=== PATIENT | male | born 1945 | race Caucasian/White ===

== ENCOUNTER 2017-01-02 07:30 | Inpatient (IN) ==
[2017-01-04] MEDS ORDERED: CLINDAMYCIN PB 900 MG/50 ML BAG IV ONE (06:00)
[2017-01-04] MEDS ORDERED: MELOXICAM 15 MG TABLET PO ONE (06:00)
[2017-01-04] MEDS ORDERED: NOZIN NASAL SWAB NAS ONE ×2 (06:00→12:02)
[2017-01-04] MEDS ORDERED: TRANEXAMIC ACID 1,000 MG in NS 100 ML IV ONE (06:00)
[2017-01-04] MEDS ORDERED: FAMOTIDINE PB 20 MG/50 ML BAG IV ONE (06:00)
[2017-01-04] MEDS ORDERED: LIDOCAINE 1% (10mg/ml) 2mL INJ PF SDV ID ONE (06:00)
[2017-01-04] MEDS ORDERED: METOCLOPRAMIDE 10mg/2ml INJECTION IVP ONE (06:00)
[2017-01-04] MEDS ORDERED: ONDANSETRON 4 MG/2 ML INJECTION IVP ONE (06:00)
[2017-01-04] MEDS ORDERED: ACETAMINOPHEN 500 MG TABLET PO ONE (06:00)
--- NOTE | 2017-01-04 07:49 | Anesthesia Preoperative Report ---
Anesthesia Preoperative Record - Date and Time Date: 01/04/17 Preoperative Diagnosis: LT NORAH M16.12 Proposed Procedure: Left total hip NPO Since Date: 01/04/17 NPO Since Time: 00:00 Allergies/Adverse Reactions: Allergies Allergy/AdvReac Type Severity Reaction Status Date / Time Penicillins Allergy Unknown Verified 11/29/16 14:47 - Vital Signs Vital Signs: Temperature 98.6 F 01/04/17 07:34 Pulse Rate 75 01/04/17 07:34 Respiratory Rate 16 01/04/17 07:34 Blood Pressure 155/72 H 01/04/17 07:34 Pulse Oximetry 95 01/04/17 07:34 Height and Weight: Height 1.83 m Weight 118.2 kg Body Mass Index 35.3 - Medications Inpatient Medications: Current Medications Lactated Ringer's (Lactated Ringers) 1,000 mls @ 50 mls/hr IV .Q20H ANA Epinephrine HCl 0.25 mg/Bupivacaine HCl 30 ml/Morphine Sulfate 15 mg/Ketorolac Tromethamine 60 mg/Sodium Chloride 65.25 mls @ 0 mls/hr OPSITE INTRAOP ONE; Per Protocol PRN Reason: Protocol Stop: 01/04/17 08:01 Sodium Chloride (Iv Flush) 10 - 80 ml IV PRN PRN PRN Reason: [place] Home Medications: Home Medications Medication Instructions Recorded Confirmed Type Multivitamin [Multi-Day Vitamins] 1 tab PO DAILY #0 tab 10/11/15 11/29/16 History Naproxen Sodium [Aleve] 440 mg PO DAILY #0 tab 10/11/15 01/03/17 History [place]-3 Fatty Acids [[place]-3] 1 cap PO DAILY #0 10/11/15 11/29/16 History Pravastatin Sodium 40 mg PO HS #0 tab 10/11/15 11/29/16 History Lisinopril 20 mg PO DAILY #0 tab 11/11/15 11/29/16 History Amlodipine Besylate 5 mg PO DAILY #0 tab 11/15/15 11/29/16 History Acetaminophen [Tylenol] 650 mg PO QID PRN 11/29/16 11/29/16 History Is Patient on Beta Nishi?: No - Medical History Respiratory: Reports: Sleep Apnea (USES CPAP) Cardiovascular: Reports: Hypertension, High Cholesterol Neuro/Musculoskeletal: Reports: HX.MS.OSAR, Depression (per h&p) Renal/Endocrine: Reports: Diabetes Mellitus Type 2 (diet controlled) Other History: Reports: Anesthesia Reactions (requests spinal) - Surgical History HEENT Surgeries: Reports: Eye Surgery (cataract x2) Respiratory Surgery/Treatments: Reports: CPAP Use Musculoskeletal Surgery/Tx: Reports: Total Hip Replacement (Rt NORAH 2016) Anesthesia Reactions: None Hx Family Anesthesia Reaction: No History of Motion Sickness: No - Social History Smoking Status: Former smoker Hx Chewing Tobacco Use: No Second Hand Exposure: No Substance Use Type: does not use Alcohol Intake Frequency: holidays/special occasions only - Pertinent Findings EKG: Sinus Rhythm - Physical Exam Respiratory Exam: Present: lungs clear Cardiovascular Exam: Present: regular rate and rhythm - Airway Assessment Mallampati Score: II TMD: 3 Fingerbreadths Neck Extension: fair Overall Assessment: no airway concerns - ASA ASA Score: 2 - Plan Regional/Trunk Block: Spinal - Discussion Discussion: Discussed risks/options/alternatives of anesthesia and questions answered. Patient consents. Nursing pain assessment noted. Attestation Statement: Prior to the delivery of any anesthetic medication, I examined the patient, developed the plan, obtained the patient's consent and discussed the risk and benefits of the procedure with the patient/guardian. - Additional Information Seen by Anesthesia: Yes
[2017-01-04] MEDS: LR 1,000 ML IV SCH ×2 (08:00→10:25)
[2017-01-04] MEDS ORDERED: MIDAZOLAM 2mg/2ml INJECTION ONE (09:11)
[2017-01-04] MEDS ORDERED: VANCOMYCIN 1,000 MG INJECTION ONE (09:11)
[2017-01-04] MEDS ORDERED: PROPOFOL 500 MG/50 ML VIAL IV ONE ×3 (09:12→10:32)
[2017-01-04] MEDS ORDERED: PHENYLEPHRINE INJ 10 MG/ML VIAL IV ONE (09:34)
[2017-01-04] MEDS ORDERED: EPHEDRINE 50mg/ml INJECTION ONE (09:47)
[2017-01-04] MEDS: EPINEPHrine PF 0.25 MG, BUPIVACAINE 0.25% PF 30 ML, MORPHINE SULFATE 15 MG, KETOROLAC I... OPSITE ONE ×2 (10:50→12:25)
[2017-01-04] MEDS: VANCOMYCIN 1,000 MG INJECTION IAR ONE ×2 (10:50→12:25)
--- NOTE | 2017-01-04 11:04 | Operative Note ---
- Procedure Preoperative Diagnosis: Left hip primary degenerative joint disease Postoperative Diagnosis: Same as preoperative diagnosis. Surgeon: Annika Rivera MD [employer]eral [employer] Associate: Francisco Zamudio Complications: None. Anesthesia: Spinal. Estimated Blood Loss: See Anesthesia Record. Fluids: Please see Anesthesia Record. Description of Procedure: Mr. Mccullough and his left hip were identified and marked in the preoperative holding area. He was brought back to the operating suite and spinal anesthetic was administered. He was then placed in a lateral decubitus position with his left hip up. The left lower extremity was prepped and draped in my normal sterile fashion. Timeout was performed. The [employer] robotic arm was used to assist with the surgery. A pelvic array was placed into the iliac crest through three 1 cm incisions. A direct superior approach was utilized. An approximately 10 cm incision was made in the skin and dissection carried down to the muscle fascia which was then split in line with skin incision. A checkpoint was placed in the greater trochanter. The short external rotators were identified and tagged and detached. A capsulotomy was performed and the hip dislocated. A femoral neck osteotomy was performed at the pre-templated level measuring down from the femoral head approximately 55 mm. The head was removed and acetabulum exposed. Labrum was removed. The acetabulum was then registered with the robot. The robotic arm was then used to ream with a 57 reamer. The robot then was again used to place a 58 Trident cup in 40 of tilt and 20 of anteversion. A liner was then placed. The proximal femur was exposed and prepared with a cookie cutter followed by reaming and broaching to a size 7. We trialed with a -2.5 head. After thorough irrigation a final Accolade 2 size 7 stem with 127 neck was placed. Leg length and offset were checked with the robot and were good. A final -2.5 ceramic head was placed and the hip reduced. Betadine solution was used to irrigate throughout the case. It was followed by normal saline irrigation. Joint cocktail was injected throughout soft tissue. The capsulotomy was repaired with Ethibond. Short external rotators were also repaired with Ethibond. 1 g of vancomycin powder was placed into the wound. The muscle fascia was then repaired with #1 Vicryl. I then left my clinical nursing assistant to close the subcutaneous tissue with 2-0 Vicryl followed by running 4-0 Monocryl skin followed by Dermabond and a sterile dressing. The patient with any placed back into supine position and taken to recovery room in the care of anesthesia.
[2017-01-04] MEDS: TRANEXAMIC ACID 1,000 MG in NS 100 ML IV ONE ×2 (11:11→12:24)
[2017-01-04] MEDS ORDERED: SALINE FLUSH 10ml SYRINGE IV PRN (11:22)
[2017-01-04] MEDS ORDERED: ONDANSETRON 4 MG/2 ML INJECTION IVP PRN ×2 (11:45→12:02)
[2017-01-04] MEDS ORDERED: HYDROMORPHONE 2 MG/ML INJECTION IVP PRN (11:45)
[2017-01-04] MEDS ORDERED: DiphenhydrAMINE 25 MG CAPSULE PO PRN (12:02)
[2017-01-04] MEDS ORDERED: INSULIN ASPART 100unit/ml INJECTION SQ PRN (12:02)
[2017-01-04] MEDS ORDERED: NAPROXEN 220 MG TABLET PO PRN (12:02)
[2017-01-04] MEDS ORDERED: DiphenhydrAMINE 50 MG/ML INJECTION IVP PRN (12:02)
[2017-01-04] MEDS ORDERED: LORazepam 1 MG TABLET PO PRN (12:02)
[2017-01-04] MEDS ORDERED: FALL RISK - PHARMACY CONSULT XX ONE (12:11)
--- NOTE | 2017-01-04 12:11 | Anesthesia Postoperative Note ---
- Date and Time Date: 01/04/17 Time: 12:09 - Status Patient Participated in Evaluation: Patient Participated in Person Vital Signs: Temperature 97.9 F 01/04/17 11:55 Pulse Rate 82 01/04/17 11:55 Respiratory Rate 20 01/04/17 11:55 Blood Pressure 97/51 01/04/17 11:55 Pulse Oximetry 98 01/04/17 11:55 Respiratory Function: Airway Patent EKG: Sinus Rhythm Hydration: IV Infusing Complications During Recover: None Apparent - Follow-Up Instructions Instructions: Per Surgeon
[2017-01-04 12:14] VITALS: BMI 36.3
[2017-01-04] MEDS: AMLODIPINE 5 MG TABLET PO SCH (12:17)
[2017-01-04] MEDS: ACETAMINOPHEN 325 MG TABLET PO SCH ×4 (12:17→21:17)
[2017-01-04] MEDS: DOCUSATE SODIUM 100 MG CAPSULE PO SCH ×2 (12:17→21:16)
[2017-01-04] MEDS: LISINOPRIL 20 MG TABLET PO SCH (12:17)
[2017-01-04] MEDS: NS 1,000 ML IV SCH (12:18)
--- NOTE | 2017-01-04 12:21 | XRay Report ---
Indication: postoperative image PROCEDURE: XR pelvis w/ 1 view LT hip: Encounter: Initial Comparison: CT pelvis dated December 11, 2016 Findings: Postoperative changes of left total hip replacement are seen. There is expected postoperative subcutaneous gas. No evidence of hardware failure or acute fracture. No retained radiopaque surgical instruments or sponges seen. Existing right hip prosthesis appears intact. Impression: New left total hip prosthesis without evidence of immediate complication. .
[2017-01-04] MEDS: POLYETHYL GLYCOL 3350 17gm PACKET PO SCH (12:23)
[2017-01-04] MEDS: OMEGA-3 ACID ESTERS 1 GM CAPSULE PO SCH (12:23)
[2017-01-04] MEDS: CLINDAMYCIN PB 900 MG/50 ML BAG IV SCH ×2 (13:44→21:16)
[2017-01-04] MEDS: NOZIN NASAL SWAB NAS SCH ×2 (13:44→21:18)
[2017-01-04 20:45] VITALS: RESP 16
[2017-01-04] MEDS ORDERED: PRAVASTATIN 40 MG TABLET PO SCH (21:00)
[2017-01-04] MEDS ORDERED: SENNOSIDES 8.6 MG TABLET PO SCH (21:00)
[2017-01-04] MEDS: ASPIRIN *EC* 81 MG TABLET PO SCH (21:16)
[2017-01-05] MEDS: NS 1,000 ML IV SCH (02:08)
[2017-01-05] MEDS: TRAMADOL 50 MG TABLET PO PRN ×3 (03:34→10:05)
[2017-01-05] MEDS: NOZIN NASAL SWAB NAS SCH (06:25)
[2017-01-05] MEDS: CLINDAMYCIN PB 900 MG/50 ML BAG IV SCH (07:18)
[2017-01-05] MEDS ORDERED: SENNOSIDES 8.6 MG TABLET PO PRN (07:57)
[2017-01-05] MEDS: ASPIRIN *EC* 81 MG TABLET PO SCH (09:47)
[2017-01-05] MEDS: DOCUSATE SODIUM 100 MG CAPSULE PO SCH (09:47)
[2017-01-05] MEDS: ACETAMINOPHEN 325 MG TABLET PO SCH ×2 (09:49→13:29)
[2017-01-05] MEDS: LISINOPRIL 20 MG TABLET PO SCH (09:50)
[2017-01-05] MEDS: POLYETHYL GLYCOL 3350 17gm PACKET PO SCH (09:50)
[2017-01-05] MEDS: OMEGA-3 ACID ESTERS 1 GM CAPSULE PO SCH (09:50)
[2017-01-05] MEDS: AMLODIPINE 5 MG TABLET PO SCH (09:50)
[2017-01-05 14:22] VITALS: BP 135/57; PULSE 90; TEMP 96.5; O2SAT 96
[2017-01-06] MEDS ORDERED: BISACODYL 10 MG SUPPOSITORY RECTALLY SCH (20:00)
== END 2017-01-05 14:00 | disposition home or self-care (01) | DRG 470 ==
LOC: SRG 01-04 07:13
PROVIDERS: ADMIT Orthopaedic Surgery; ATTEND Orthopaedic Surgery